=== PATIENT | male | born 1990 | race American Indian/Alaskan Native ===

== ENCOUNTER 2020-08-31 12:16 | Emergency (ER) | payer OTHER ==
--- NOTE | 2020-08-31 14:15 | XRay Report ---
LEFT TIBIA/FIBULA 4 VIEWS LEFT ANKLE 4 VIEWS INDICATION / CLINICAL INFORMATION: Left leg and ankle pain after fall. COMPARISON: None available. FINDINGS: BONES and JOINT(S): There is an acute mildly displaced oblique fracture through the distal third of t he fibular shaft. Lateral talar shift is noted. The medial clear space measures 12 mm. No significant arthritis. SOFT TISSUES: Mild generalized edema is seen along the ankle. No other significant abnormality. ADDITIONAL FINDINGS: None. IMPRESSION: 1. Acute left fibular shaft fracture as above. 2. Disruption of the left ankle joint as above with mild generalized edema. Signer Name: Joon Resendiz MD Signed: 08/31/2020 2:10 PM Workstation Name: [id number]
[2020-08-31] MEDS ORDERED: HYDROcodone/ACETAMINOPHEN 10-325MG TAB PO ONE (14:21)
[2020-08-31 15:31] VITALS: BP 116/37
--- NOTE | 2020-08-31 15:31 | Emergency Department Report ---
ED Lower Extremity HPI - General Chief Complaint: Extremity Injury, Lower Stated Complaint: LFT FOOT INJURY/PAIN Time Seen by Provider: 08/31/20 13:19 Source: patient Mode of arrival: Wheelchair Limitations: No Limitations - History of Present Illness Initial Comments: This is a 30-year-old male nontoxic, well nourished in appearance, no acute signs of distress presents to the ED with c/o of left ankle pain x1 day. Patient stated that he was rollerskating and injured left ankle. Patient denies any other trauma. Patient denies any neck or back pain. Patient denies any numbness, tingling, fever, chills, nausea, vomiting, chest pain, shortness of breath, headache, stiff neck. Patient denies any joint swelling or joint redness. Patient has decreased range of motion and decreased gait due to pain. Patient denies any allergies or significant past medical history. -: days(s) Injury: Ankle: Left Severity: moderate Severity scale (0 -10): 8 Improves With: immobilization Worsens With: weight bearing, movement, palpation Context: fall Associated Symptoms: swelling, unable to bear weight. denies: snap/pop sensation, numbness, tingling - Related Data Previous Rx's Medication Instructions Recorded Last Taken Type Acetaminophen/Codeine [Tylenol 1 tab PO Q6H PRN #12 tab 08/31/20 Unknown Rx /Codeine # 3 tab] ED Review of Systems ROS: Stated complaint: LFT FOOT INJURY/PAIN Other details as noted in HPI Constitutional: denies: chills, fever Eyes: denies: eye pain, eye discharge, vision change ENT: denies: ear pain, throat pain Respiratory: denies: cough, shortness of breath, wheezing Cardiovascular: denies: chest pain, palpitations Endocrine: no symptoms reported Gastrointestinal: denies: abdominal pain, nausea, diarrhea Genitourinary: denies: urgency, dysuria Musculoskeletal: denies: back pain, joint swelling, arthralgia Skin: denies: rash, lesions Neurological: denies: headache, weakness, paresthesias Psychiatric: denies: anxiety, depression Hematological/Lymphatic: denies: easy bleeding, easy bruising ED Past Medical Hx - Past Medical History Previous Medical History?: Yes Hx Asthma: Yes - Surgical History Past Surgical History?: No - Medications Home Medications: Home Medications Medication Instructions Recorded Confirmed Last Taken Type Acetaminophen/Codeine [Tylenol 1 tab PO Q6H PRN #12 tab 08/31/20 Unknown Rx /Codeine # 3 tab] ED Physical Exam - General Limitations: No Limitations General appearance: alert, in no apparent distress - Head Head exam: Present: atraumatic, normocephalic - Eye Eye exam: Present: normal appearance - Neck Neck exam: Present: normal inspection, full ROM - Respiratory Respiratory exam: Absent: respiratory distress - Cardiovascular Cardiovascular Exam: Present: regular rate - Extremities Exam Extremities exam: Present: tenderness, normal capillary refill, joint swelling. Absent: calf tenderness - Expanded Lower Extremity Exam Left Hip exam: Present: normal inspection, full ROM. Absent: tenderness, swelling Upper Leg exam: Present: normal inspection, full ROM. Absent: tenderness, swelling Knee exam: Present: normal inspection, full ROM, full knee extension. Absent: tenderness, swelling, abrasion, laceration, ecchymosis, deformity, crepidus, dislocation, erythema, effusion, pain w/ pronation/supination, posterior draw sign, pain/laxity with valgus, pain/laxity with varus Lower Leg exam: Present: tenderness, swelling. Absent: abrasion, laceration, ecchymosis, deformity, crepidus, dislocation, erythema, palpable cord, Cortney's sign Ankle exam: Present: full ROM, tenderness, swelling. Absent: abrasion, laceration, ecchymosis, deformity, crepidus, dislocation, erythema, anterior draw sign Foot/Toe exam: Present: normal inspection, full ROM. Absent: tenderness, swelling Neuro vascular tendon exam: Present: no vascular compromise Gait: Positive: unable to bear weight - Back Exam Back exam: Present: normal inspection, full ROM. Absent: tenderness, CVA ten derness (R), CVA tenderness (L), muscle spasm, paraspinal tenderness, vertebral tenderness, rash noted - Neurological Exam Neurological exam: Present: alert, oriented X3 - Psychiatric Psychiatric exam: Present: normal affect, normal mood - Skin Skin exam: Present: warm, dry, intact, normal color. Absent: rash ED Course Vital Signs 08/31/20 13:18 Temperature 98.3 F Pulse Rate 68 Respiratory 18 Rate Blood Pressure 116/37 O2 Sat by Pulse 99 Oximetry - Reevaluation(s) Reevaluation #1: 08/31/20 15:32 Patient is speaking in full sentences with no signs of distress noted. ED Lower Extremity MDM - Radiology Data Referring Physician: JOSE MANUEL BLACKMON Patient Name: MILTON ARGUETA Date of : 1990 Sex: Male Report Date: 2020-08-31 Report Status: Finalized [address] [address] XRay Report Signed Patient: MILTON ARGUETA MR#: [id number] : 1990 Acct:[id number] Age/Sex: 30 / M ADM Date: 08/31/20 Loc: ED Attending Dr: Ordering Physician: JOSE MANUEL BLACKMON NP Date of Service: 08/31/20 Procedure(s): XR tibia fibula 2V LT Accession Number(s): [id number] cc: JOSE MANUEL BLACKMON NP Fluoro Time In Minutes: LEFT TIBIA/FIBULA 4 VIEWS LEFT ANKLE 4 VIEWS INDICATION / CLINICAL INFORMATION: Left leg and ankle pain after fall. COMPARISON: None available. FINDINGS: BONES and JOINT(S): There is an acute mildly displaced oblique fracture through the distal third of the fibular shaft. Lateral talar shift is noted. The medial clear space measures 12 mm. No significant arthritis. SOFT TISSUES: Mild generalized edema is seen along the ankle. No other significant abnormality. ADDITIONAL FINDINGS: None. IMPRESSION: 1. Acute left fibular shaft fracture as above. 2. Disruption of the left ankle joint as above with mild generalized edema. Signer Name: Joon Resendiz MD Signed: 08/31/2020 2:10 PM Workstation Name: [id number] Transcribed By: [place] Dictated By: Joon Resendiz MD Electronically Authenticated By: Joon Resendiz MD Signed Date/Time: 08/31/20 1410 DD/ 1408 TD/TT: Referring Physician: JOSE MANUEL BLACKMON Patient Name: MILTON ARGUETA Date of : 1990 Sex: Male Report Date: 2020-08-31 Report Status: Finalized [address] [address] XRay Report Signed Patient: MILTON ARGUETA MR#: [id number] : 1990 Acct:[id number] Age/Sex: 30 / M ADM Date: 08/31/20 Loc: ED Attending Dr: Ordering Physician: JOSE MANUEL BLACKMON NP Date of Service: 08/31/20 Procedure(s): XR ankle 3+V LT Accession Number(s): [id number] cc: JOES MANUEL BLACKMON NP Fluoro Time In Minutes: LEFT TIBIA/FIBULA 4 VIEWS LEFT ANKLE 4 VIEWS INDICATION / CLINICAL INFORMATION: Left leg and ankle pain after fall. COMPARISON: None available. FINDINGS: BONES and JOINT(S): There is an acute mildly displaced oblique fracture through the distal third of the fibular shaft. Lateral talar shift is noted. The medial clear space measures 12 mm. No significant arthritis. SOFT TISSUES: Mild generalized edema is seen along the ankle. No other significant abnormality. ADDITIONAL FINDINGS: None. IMPRESSION: 1. Acute left fibular shaft fracture as above. 2. Disruption of the left ankle joint as above with mild generalized edema. Signer Name: Joon Resendiz MD Signed: 08/31/2020 2:10 PM Workstation Name: [id number] Transcribed By: [place] Dictated By: Joon Resendiz MD Electronically Authenticated By: Joon Resendiz MD Signed Date/Time: 08/31/20 141 DD/ 07 TD/TT: - Medical Decision Making This is a 30-year-old male that presents with left fibular fracture. Patient is stable and was examined by me. I referred patient to an orthopedic doctor for further evaluation for possible MRI. X-ray has been obtained and dictated by the radiologist. Patient is notified of the x-ray report with noted by the patient. Patient received a [place] splint with crutches. Post splint assessment: neurovasular intact; normal cap refill <2 second; normal sensation; denies decreaed sensation; normal ROM of digits. Patient was educated by RN how to use crutches. Patient was instructed to RICE therapy. Patient received [place] for pain and patient stated family member will drive the patient home after discharge due to possible drowsiness. Patient is discharged with Tylenol with codeine and was instructed not to operate any machinery while taking this. At time of discharge, the patient does not seem toxic or ill in appearance. No acute signs of distress noted. Patient agrees to discharge treatment plan of care. No further questions noted by the patient. Critical care attestation.: If time is entered above; I have spent that time in minutes in the direct care of this critically ill patient, excluding procedure time. ED Disposition Clinical Impression: Closed left fibular fracture Qualifiers: Encounter type: initial encounter Fibula location: distal Fracture morphology: unspecified fracture morphology Qualified Code(s): S82.832A - Other fracture of upper and lower end of left fibula, initial encounter for closed fracture Disposition: DC- TO HOME OR SELFCARE Is pt being admited?: No Does the pt Need Aspirin: No Condition: Stable Instructions: Cast or Splint Care, Adult, [id number], Tibial and Fibular Fractures, Acetaminophen; Codeine tablets Additional Instructions: Follow-up with a orthopedic doctor in 3-5 days or if symptoms worsen and continue return to emergency room as soon as possible. Do not operate any machinery while taking Tylenol with codeine as this may cause drowsiness. No physical activity that extremity until cleared by orthopedic doctor Prescriptions: Acetaminophen/Codeine [Tylenol /Codeine # 3 tab] 1 tab PO Q6H PRN #12 tab PRN Reason: Pain , Severe (7-10) Referrals: PRIMARY CARE, [Primary Care Provider] - 3-5 Days CHYNA GARCÍA MD [Staff Physician] - 3-5 Days Forms: Work/School Release Form(ED) Time of Disposition: 15:40
== END 2020-08-31 16:40 | disposition home or self-care (01) ==
LOC: ED 12:16
DX: S82.832A Other fracture of upper and lower end of left fibula, initial encounter for closed fracture (principal); J45.909 Unspecified asthma, uncomplicated; Z79.899 Other long term (current) drug therapy; X58.XXXA Exposure to other specified factors, initial encounter; Y93.89 Activity, other specified; Y92.89 Other specified places as the place of occurrence of the external cause; Y99.8 Other external cause status